=== PATIENT | female | born 2000 | race Caucasian/White ===

== ENCOUNTER 2023-06-07 03:51 | Emergency (ER) | payer MEDICAID ==
[~2023-06-07] VITALS: Ht 160 cm; Wt 72.6 kg
[2023-06-07 03:55] VITALS: O2SAT 98
== END 2023-06-07 04:45 | disposition home or self-care (01) ==
LOC: ER 03:56
DX: T45.0X1A Poisoning by antiallergic and antiemetic drugs, accidental (unintentional), initial encounter (principal); Y92.89 Other specified places as the place of occurrence of the external cause
CPT/HCPCS: A4606; A4663

== ENCOUNTER 2024-08-22 10:11 | Emergency (ER) | payer MEDICAID ==
[~2024-08-22] VITALS: Ht 160 cm; Wt 74.8 kg
[2024-08-22] MEDS ORDERED: KETOROLAC TROMETHAMINE 15 MG INJ ONE (10:45)
[2024-08-22] MEDS ORDERED: METOCLOPRAMIDE HCL 10 MG/2 ML VIAL ONE (10:45)
[2024-08-22] MEDS: METOCLOPRAMIDE HCL 10 MG/2 ML VIAL IV ONE (10:48)
[2024-08-22] MEDS: IV NORMAL SALINE 1000 ML BAG IV ONE (10:48)
[2024-08-22] MEDS: KETOROLAC TROMETHAMINE 15 MG INJ IVP ONE (10:49)
[2024-08-22 11:03] LABS: BASOPHILS % (AUTO) 0.3 % (0.0-2.0); EOSINOPHILS % (AUTO) 0.5 % (0.0-7.0); HEMOGLOBIN 12.5 g/dL (10.9-14.3); LYMPHOCYTES # (AUTO) 1.9 K/uL (0.8-4.8); LYMPHOCYTES % (AUTO) 25.8 % (20.5-51.5); MEAN CORPUSCULAR HEMOGLOBIN 28.7 uug (24.7-32.8); MEAN CORPUSCULAR HGB CONC 34 g/dL (32.3-35.6); MEAN CORPUSCULAR VOLUME 85.3 fL (75.5-95.3); MONOCYTES # (AUTO) 0.7 K/uL (0.1-1.30); MONOCYTES % (AUTO) 9.5 % (0.0-11.0); NEUTROPHILS # (AUTO) 4.8 K/uL (1.8-8.9); NEUTROPHILS % (AUTO) 63.9 % (38.5-71.5); PLATELET COUNT (AUTO) 291 K/uL (179-408); RED BLOOD CELL COUNT(AUTO) 4.34 MIL/uL (3.63-4.92); WHITE BLOOD COUNT (AUTO) 7.4 K/uL (3.8-11.8)
[2024-08-22 11:13] LABS: DIFFERENTIAL COMMENT 1
[2024-08-22 11:25] LABS: ALANINE AMINOTRANSFERASE 13 U/L (14-59); ALBUMIN 4.2 g/dL (3.4-5.0); ALKALINE PHOSPHATASE 76 U/L (50-136); ASPARTATE AMINOTRANSFERASE 12 U/L (15-37); BILIRUBIN,DIRECT 0.1 mg/dL (0.0-0.2); BILIRUBIN,TOTAL 0.6 mg/dL (0.2-1.0); CALCIUM 9.2 mg/dL (8.5-10.1); CARBON DIOXIDE 28 mmol/L (21-32); CHLORIDE 100 mmol/L (98-107); CREATININE 1.3 mg/dL (0.6-1.3); GLUCOSE 114 mg/dL (74-106); LIPASE 20 U/L (16-77); POTASSIUM 3.8 mmol/L (3.5-5.1); SODIUM SERUM 140 mmol/L (136-145); TOTAL PROTEIN, SERUM 8.4 g/dL (6.4-8.2); UREA NITROGEN, BLOOD 10 mg/dL (7-18)
[2024-08-22 11:54] LABS: *BILIRUBIN,URIN NEGATIVE (NEGATIVE); *BLOOD, URINE 3+ (NEGATIVE); *CLARITY,URINE CLEAR (CLEAR); *COLOR,URINE YELLOW (YELLOW); *KETONES,URINE TRACE (NEGATIVE); *PROTEIN,URINE 2+ (NEGATIVE); *UROBILINOGEN,URINE 0.2 E.U./dl (NORMAL); LEUKOCYTE ESTERASE ,URINE NEGATIVE (NEGATIVE); NITRITE, URINE NEGATIVE (NEGATIVE); UGLUCOSE NEGATIVE (NEGATIVE)
[2024-08-22 11:56] LABS: *URINE HCG, QUAL NEGATIVE (NEGATIVE)
[2024-08-22 11:57] LABS: BACTERIA,URINE FEW /HPF (NONE SEEN); RBC,URINE 50-80 /HPF (0-3); SQUAMOUS EPITHELIAL CELL,UR FEW /HPF (NONE SEEN); WBC,URINE 0-3 /HPF (0-3)
[2024-08-22 12:00] LABS: PREGNANCY TEST SERUM QUAN < 1 miul/L (0-6)
[2024-08-22] MEDS ORDERED: IBUP-1957 PO (14:23)
[2024-08-22] MEDS ORDERED: METO-295 PO (14:23)
[2024-08-22 14:45] VITALS: BP 129/89; TEMP 98; O2SAT 99
== END 2024-08-22 14:45 | disposition home or self-care (01) ==
LOC: ER 10:11
DX: R10.13 Epigastric pain (principal); R11.2 Nausea with vomiting, unspecified; R10.2 Pelvic and perineal pain
CPT/HCPCS: 99284; 96374; 96361; 96375; 80076; 80048; 81001; 84703; 83690; 85025; 84702; 36415; J1885; J2765; J7040; A4606; A4663

== ENCOUNTER 2025-03-16 03:52 | Inpatient (IN) | payer MEDICAID ==
[~2025-03-16] VITALS: Ht 160 cm; Wt 69.4 kg
[~2025-03-16 03:52] MED LIST: IBUP-1957 PO; METO-295 PO
[2025-03-16] MEDS ORDERED: METOCLOPRAMIDE HCL 10 MG/2 ML VIAL ONE (04:27)
[2025-03-16] MEDS ORDERED: diphenhydrAMINE 50 MG/1 ML VIAL ONE (04:32)
[2025-03-16 04:33] LABS: PLATELET COUNT (AUTO) 318 K/uL (179-408); RED BLOOD CELL COUNT(AUTO) 5.03 MIL/uL (3.63-4.92); RED CELL DISTRIBUTION WIDTH 15.8 % (12.3-17.7); WHITE BLOOD COUNT (AUTO) 5.6 K/uL (3.8-11.8)
[2025-03-16] MEDS: diphenhydrAMINE 50 MG/1 ML VIAL IV ONE (04:35)
[2025-03-16] MEDS: METOCLOPRAMIDE HCL 10 MG/2 ML VIAL IV ONE (04:35)
[2025-03-16 04:51] LABS: CREATININE 0.6 mg/dL (0.6-1.3); SODIUM SERUM 140 mmol/L (136-145); UREA NITROGEN, BLOOD 7 mg/dL (7-18)
[2025-03-16 05:00] LABS: ASPARTATE AMINOTRANSFERASE 12 U/L (15-37); TOTAL PROTEIN, SERUM 8.6 g/dL (6.4-8.2)
[2025-03-16 05:04] LABS: ETHANOL 185.0 MG/DL (0-10)
[2025-03-16] MEDS ORDERED: PANTOPRAZOLE SODIUM 40 MG VIAL ONE ×2 (06:05→06:06)
[2025-03-16] MEDS: PANTOPRAZOLE SODIUM IV 80 MG in IV DEXTROSE 5% 100 ML IV ONE (06:14)
[2025-03-16] MEDS ORDERED: ONDANSETRON 4 MG/2 ML VIAL IV PRN ×2 (06:15→10:30)
[2025-03-16] MEDS ORDERED: IV NS 1000 ML 1,000 ML IV PRN (06:15)
[2025-03-16] MEDS ORDERED: PANTOPRAZOLE SODIUM IV 80 MG in IV DEXTROSE 5% 100 ML IV ONE (06:15)
[2025-03-16] MEDS ORDERED: IV NS 1000 ML 1,000 ML IV ONE (06:15)
[2025-03-16 07:31] LABS: PLATELET COUNT (AUTO) 295 K/uL (179-408); RED BLOOD CELL COUNT(AUTO) 4.88 MIL/uL (3.63-4.92); RED CELL DISTRIBUTION WIDTH 15.5 % (12.3-17.7); WHITE BLOOD COUNT (AUTO) 8.2 K/uL (3.8-11.8)
[2025-03-16 09:25] VITALS: BP 127/66
[2025-03-16 11:00] VITALS: BP 120/76; TEMP 98.5; O2SAT 99
[2025-03-16] MEDS: IV NS 1000 ML 1,000 ML IV SCH (11:30)
[2025-03-16] MEDS: PANTOPRAZOLE SODIUM 40 MG VIAL IV SCH (11:34)
[2025-03-16 15:41] VITALS: BP 115/67; TEMP 98.8; O2SAT 98
[2025-03-16 19:59] VITALS: BP 108/81; TEMP 97.8; O2SAT 98
[2025-03-17 00:09] VITALS: BP 107/62; TEMP 98.6; O2SAT 99
[2025-03-17 04:40] VITALS: BP 109/72; TEMP 98; O2SAT 97
[2025-03-17 07:19] LABS: RED BLOOD CELL COUNT(AUTO) 3.74 MIL/uL (3.63-4.92); RED CELL DISTRIBUTION WIDTH 15.2 % (12.3-17.7); WHITE BLOOD COUNT (AUTO) 5.3 K/uL (3.8-11.8)
[2025-03-17 07:20] LABS: PLATELET COUNT (AUTO) 219 K/uL (179-408)
[2025-03-17 07:33] VITALS: BP 120/75; TEMP 97.4; O2SAT 99
[2025-03-17 07:45] LABS: CREATININE 0.4 mg/dL (0.6-1.3); SODIUM SERUM 139 mmol/L (136-145); UREA NITROGEN, BLOOD 10 mg/dL (7-18)
[2025-03-17] MEDS ORDERED: PANT40TA2 PO (08:30)
[2025-03-17 11:35] VITALS: BP 102/78; TEMP 97.6; O2SAT 100
[2025-03-17] MEDS: MAGNESIUM OXIDE 400 MG TABLET PO ONE (14:12)
[2025-03-17] MEDS: POTASSIUM CHLORIDE 20 MEQ TAB.PRT.SR PO ONE (14:13)
[2025-03-17 16:00] VITALS: BP 100/54; TEMP 98.2; O2SAT 99
== END 2025-03-17 18:20 | disposition home or self-care (01) | DRG 253 ==
LOC: ER 04:05 → TELE3 09:48
PROVIDERS: ADMIT Internal Medicine; ATTEND Internal Medicine
DX: K92.0 Hematemesis (principal); D64.9 Anemia, unspecified; F10.129 Alcohol abuse with intoxication, unspecified; Y90.6 Blood alcohol level of 120-199 mg/100 ml
CPT/HCPCS: 36415; 71045; 83735; 84100; 85018; 85025; 85610; 86850; 86900; 86901; A4606; A4663; G0378; G0480; J1200; J2470; J2765; J7040